=== PATIENT | female | born 1990 | race Caucasian/White ===

== ENCOUNTER 2021-11-23 12:54 | Emergency (ER) | payer OTHER, SELFPAY ==
--- NOTE | ~2021-11-23 | XR_ITS ---
EXAMINATION: XR ankle RT min 3V, XR foot RT min 3V DATE: 11/23/2021 13:32 INDICATION: Lateral right foot and ankle pain and swelling post inversion injury TECHNIQUE: 1. Anteroposterior, mortise, additional oblique and lateral view of the right ankle were obtained. 2. Dorsoplantar, two oblique and lateral views of the right foot were obtained. COMPARISON: None. FINDINGS: Alignment of the foot and ankle is normal. No fracture or osteochondral lesion. Joint spaces are well maintained. No ankle joint effusion. Prominent soft tissue swelling about the lateral malleolus. IMPRESSION: 1. No right ankle joint effusion or osseous abnormality. Reviewed, dictated and finalized at location A. IMPRESSION: 1. No right ankle joint effusion or osseous abnormality.
[2021-11-23 13:06] VITALS: BP 152/98; PULSE 99; RESP 20; TEMP 36.8; O2SAT 99
--- NOTE | 2021-11-23 13:20 | ED.GENADULT ---
HPI - General Adult General Chief complaint: Extremity Injury, Lower Stated complaint: Right Ankle Injury Source: patient Mode of arrival: ambulatory Limitations: no limitations History of Present Illness HPI narrative: Patient presents for evaluation of right foot and ankle pain since . She states she was stepping off of a bed of a pickup truck when she twisted her right ankle. She fell to the ground. She did not hit her head. No loss of consciousness. She has not been able to ambulate since that time. She is using crutches to mobilize. At rest her pain is mild but with any weightbearing her pain increases to 10 out of 10 in severity, described as sharp . She has associated numbness and tingling in the toes. She tried taking ibuprofen which allowed her to rest. No additional complaints or concerns. Related Data Allergies Allergy/AdvReac Type Severity Reaction Status Date / Time No Known Drug Allergies Allergy none Verified 11/23/21 14:27 Review of Systems Review of Systems: CONSTITUTIONAL: Denies fever, chills, or sweats. EYES: Denies visual changes, redness, or discharge. ENT: Denies rhinorrhea, congestion, sore throat, or otalgia. CARDIOVASCULAR: Denies chest pain, palpitations, or edema. RESPIRATORY: Denies cough or dyspnea. GASTROINTESTINAL: Denies abdominal pain, nausea, vomiting, or diarrhea. GENITOURINARY: Denies dysuria or hematuria. SKIN: Denies rash or itching. MUSCULOSKELETAL: Reports pain and swelling in the right foot and ankle NEUROLOGIC: Reports numbness and tingling in the right toes. Denies headache, dizziness, or weakness. PSYCHIATRIC: Denies anxiety or depression. [facility]LY [facility] Past Medical History Medical History (Updated 11/23/21 @ 14:30 by SHAYLA Roe, EFREN) No pertinent past medical history Right ankle sprain Surgical History Surgical History No pertinent past surgical history Family History Family History Mother Family history non-contributory Social History Social History Smoking status: Never smoker Substance use: never Gender identity (if verbalized by the patient): Female Spiritual care concerns: No Exam Narrative: GENERAL: Well-appearing, well-nourished, and in no acute distress. HEAD: Normocephalic, atraumatic. EYES: PERRLA and EOMI. ENT: Nares clear, no rhinorrhea or epistaxis. Mucous membranes moist. Oropharynx without tonsillar hypertrophy exudate or other lesions. Bilateral TMs pearly velázquez nonbulging NECK: Supple. No adenopathy or masses. No carotid bruits or JVD CHEST: Clear to auscultation. No respiratory distress. No wheezes rales or rhonchi HEART: Regular rate and rhythm. No murmur heard. Normal peripheral pulses. ABDOMEN: Soft, nontender, nondistended, normal active bowel sounds. EXTREMITIES: Resting plantarflexion of the right foot secondary to pain. There is swelling throughout the right ankle and foot. There is tenderness over the medial and lateral malleolus of the right ankle as well as over the fourth and fifth metatarsals of the right foot. SKIN: Warm, dry, no rash. NEURO: No focal deficits. Alert and oriented x3. PSYCH: Normal mood and affect. Course Course Emergency Course: This is a 31-year-old female who presented for evaluation of right ankle and foot pain following a fall last week. On exam she is quite tender and she has a fair amount of swelling present. Her x-rays were negative for fracture. I am concerned that she has an occult fracture. We will treat her as such with posterior short leg OCL with ankle stirrup. I do not think clinical management management would change presenting her to the emergency department for a CT scan. This can be done outpatient with orthopedics. Post splint neurovascular status intact. Will discharge with hydrocodon
== END 2021-11-23 14:55 | disposition home or self-care (01) ==
PROVIDERS: Emergency Provider Nurse Practitioner
DX: S93.401A Sprain of unspecified ligament of right ankle, initial encounter (principal); X50.9XXA Other and unspecified overexertion or strenuous movements or postures, initial encounter
CPT/HCPCS: 29515; 73610; 73630; 99213; G0463